=== PATIENT | male | born 1930 | race Caucasian/White ===

== ENCOUNTER 2016-11-17 09:54 | Inpatient (IN) | payer OTHER ==
[~2016-11-17] VITALS: Ht 170.2 cm; Wt 77.1 kg
[~2016-11-17 09:54] MED LIST: ARICEPT 5 MG TAB5 MG PO; COUMADIN 2.5MG2.5 M1 PO; COUMADIN 3 MG TA3 MG PO; DESYREL50 MG PO; HYDROCODONE-AP1 EAC6 PO; PRILOSEC 20 MG20 MG PO; SENOKOT-S1 TA1 PO; SYNTHROID150 MCG PO; ZETIA10 MG PO
[2016-11-17 09:56] VITALS: BP 163/66
[2016-11-17 10:31] LABS: HEMATOCRIT 45.3 % (42.0-52.0); HEMOGLOBIN 15.6 gm/dL (14.0-18.0); MCH 31.6 pg (26.0-34.0); MCHC 34.5 g/dL (28.0-37.0); MCV 91.7 fL (80.0-100.0); PLATELET COUNT 128 thou/uL (150-400); RBC 4.94 mil/uL (4.50-6.00); RDW 13.6 % (10.5-14.5); WBC 8.7 thou/uL (4.0-11.0)
[2016-11-17 10:35] LABS: CREATININE 1.1 mg/dL (0.7-1.3); MANUAL DIFF YES; POTASSIUM 3.9 mmol/L (3.5-5.1)
[2016-11-17 10:35] LABS: URINE BILIRUBIN NEGATIVE (Negative); URINE BLOOD 1+ (Negative); URINE COLOR YELLOW; URINE GLUCOSE-RANDOM* NEGATIVE (Negative); URINE KETONES NEGATIVE (Negative); URINE LEUKOCYTES-REFLEX 2+ (Negative); URINE PROTEIN (DIPSTICK) NEGATIVE (Negative); URINE SPECIFIC GRAVITY 1.015 (1.003-1.035); URINE UROBILINOGEN 0.2 E.U./dl (0.2-1.0)
[2016-11-17 10:44] LABS: APTT 28.8 Seconds (24.5-32.8); INR 1.9; PROTIME 19.4 Seconds (9.3-11.4)
[2016-11-17 10:45] LABS: CASTS None Seen /LPF (None Seen); CRYSTALS None Seen /LPF (None Seen); SQUAMOUS 4-10 Moderate /LPF (0-3); URINE RBC 0-2 Rare /HPF (0-2)
[2016-11-17 11:00] LABS: PLATELET ESTIMATE NORMAL; TOTAL CELL COUNT 100
[2016-11-17 12:39] VITALS: BP 126/60
[2016-11-17] MEDS ORDERED: FLOMAX0.4 MG PO (13:00)
[2016-11-17] MEDS ORDERED: TRAZODONE HCL50 MG PO (13:00)
[2016-11-17 13:01] VITALS: BP 133/65
[2016-11-17] MEDS ORDERED: MELATONIN1 MG PO (13:05)
[2016-11-17 16:00] VITALS: BP 121/51
[2016-11-17 19:38] VITALS: BP 109/54
[2016-11-18 04:42] VITALS: BP 114/42
[2016-11-18 08:00] VITALS: BP 107/48
[2016-11-18 16:00] VITALS: BP 128/56
[2016-11-18 20:40] VITALS: BP 137/62
[2016-11-19 05:25] VITALS: BP 130/69
[2016-11-19 09:08] VITALS: BP 136/71
[2016-11-19] MEDS ORDERED: CEFDINIR300 MG PO (09:47)
[2016-11-19 10:28] VITALS: BP 136/71
== END 2016-11-19 11:40 | disposition home or self-care (01) | DRG 872 ==
LOC: ER 09:54 → EROBS 11:57 → 4S 11:57
PROVIDERS: Emergency Medicine
DX: A41.9 Sepsis, unspecified organism (principal); N39.0 Urinary tract infection, site not specified; I69.354 Hemiplegia and hemiparesis following cerebral infarction affecting left non-dominant side; E89.0 Postprocedural hypothyroidism; B96.20 Unspecified Escherichia coli [E. coli] as the cause of diseases classified elsewhere; Z88.0 Allergy status to penicillin
CPT/HCPCS: 10100

== ENCOUNTER 2017-06-03 12:24 | Inpatient (IN) | payer OTHER ==
[~2017-06-03] VITALS: Ht 172.7 cm; Wt 77.1 kg
--- NOTE | ~2017-06-03 | O ---
[facility] [place] [address] OPERATIVE REPORT Name: SRIDEVI ANN Room #: 416-P [facility] IN M.R.#: [id number] Admission: 06/03/17 Attend Phys: Riley Dixon MD Discharge: Date of : 31 Report #: [id number] THIS REPORT FOR: //name// CC: Riley Dixon DATE OF SERVICE: 06/04/2017 PREOPERATIVE DIAGNOSIS: Fracture, left femoral neck. POSTOPERATIVE DIAGNOSIS: Fracture, left femoral neck. PROCEDURE: Left proximal femoral cemented hemiarthroplasty. SURGEON: Miguel Montaño MD INDICATIONS: This frail 87-year-old gentleman has problems with arthritis and limited range of motion of both lower extremities. His function is also limited by previous stroke leaving him with some generalized weakness. He has been ambulatory with some assistance. He fell injuring the left hip. X-rays confirmed a fracture of the left femoral neck with displacement. Given these findings, we have discussed treatment options and elected to go ahead with surgical reconstruction using a cemented total hip arthroplasty. The patient and his daughter understand well the potential risks of surgery, particularly given his advanced age. DESCRIPTION OF PROCEDURE: The patient was taken to the operating room where he was placed under general anesthesia. Prophylactic intravenous antibiotics were administered. He was positioned in the right lateral decubitus position. The left hip and thigh were meticulously prepped and draped. A slightly curving posterolateral skin incision was made exposing the posterior aspect of the left hip joint. The short external rotators and capsule were taken down and tagged with several #1 Tevdek sutures. The fracture was found to be unstable and the femoral head was removed, it was measured at 52 mm in diameter. The femoral neck was trimmed down to an appropriate level. The Olson and Nephew hip system was utilized. The canal was sequentially reamed and broached and felt to be best suited for a size 14 broach, which would correspond to a size 12 cemented stem. A trial reduction was performed and the hip was best suited for a 52-mm head and a -3 mm neck length. He does have some preexisting flexion contracture at the hip and the knee. This length component resulted in some improvement in his preoperative hip flexion contracture. Alignment, range of motion and stability appeared to be satisfactory. The trial components were removed. A cement restrictor was placed in the canal. Methyl methacrylate cement was mixed and injected into the canal. The Olson and Nephew size 12 cemented stem was selected. This was placed into the canal and positioned in about 15-20 degrees of anteversion. Excess cement was removed [address] [address] OPERATIVE REPORT Name: SRIDEVI ANN Room #: 416-P [facility] IN .R.#: [id number] Admission: 06/03/17 Attend Phys: Riley Dixon MD Discharge: Date of : 31 Report #: [id number] from around its margin. Gentle pressure was held until the cement had hardened. A trial reduction was again performed and again the 52 mm head with a -3 mm neck length seemed to fit most appropriately and resulted in satisfactory alignment, range of motion and stability. The permanent components were then brought on to the field and the permanent 52 mm head size with a -3 mm neck sleeve component was then assembled and inserted on to the Meyer taper, this was impacted into position, the hip was reduced. Alignment, range of motion, stability and leg length were assessed and felt to be satisfactory. The entire wound was copiously irrigated. Good hemostasis was established. The short external rotators and capsule were then repaired back to bone using the #1 Tevdek sutures. A Hemovac was left in the wound exiting through a separate stab incision. The fascia was closed with multiple #1 Vicryl sutures. The subcutaneous tissues were closed with 0 Monocryl. The skin was closed with skin savi. A sterile dressing was applied. The patient was awakened and returned to recovery room in good condition. <ELECTRONICALLY SIGNED> By: Miguel Montaño MD 06/05/17 1612 1111 1212 Miguel Montaño MD /nt
--- NOTE | ~2017-06-03 | HC ---
[facility] [place] [address] CONSULTATION Name: SRIDEVI ANN Room #: 416-P [facility] IN ..#: [id number] Admission: 06/03/17 Attend Phys: Riley Dixon MD Discharge: 06/10/17 Date of : 31 Report #: [id number] THIS REPORT FOR: //name// CC: Riley Dixon HISTORY OF PRESENT ILLNESS: This patient is seen in consultation regarding recent findings of suspected adenocarcinoma of the prostate. He was admitted emergently following a fall and was found to have a fracture of his left femur. This x-rays also showed osseous sclerotic bone lesions. PSA was elevated at ____. Subsequent neurological exam shows his prostate to be enlarged and nodular. 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 He has undergone prior thyroidectomy and cholecystectomy. He had an unknown malignancy removed from his scalp in the past. ALLERGIES: PENICILLIN. MEDICATIONS: As listed on the MFR. FAMILY HISTORY: Noncontributory. SOCIAL HISTORY: Lives with his who was not present. He is a nondrinker and nonsmoker. REVIEW OF SYSTEMS: Positive for urinary retention, frequency and diminished stream. PHYSICAL EXAMINATION: GENERAL: Shows an alert white male. HEENT: He is normocephalic. NECK: Shows previous thyroidectomy. CHEST: Clear. CARDIOVASCULAR: Normal S1 and S2. ABDOMEN: No organomegaly or masses. EXTREMITIES: Show recent surgery on the left. SKIN: Shows normal turgor. NEUROLOGIC: No focal localizing signs at rest. He does have left upper hemiparesis with decreased coordination. HOSPITAL COURSE: His x-rays were as described in addition to apparent adenopathy on CT scanning. 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 PLAN: At this time, he is awaiting transfer to rehabilitation and states that [facility] [address] [place] [address] CONSULTATION Name: SRIDEVI ANN Room #: 416-P [facility] IN [facility]#: [id number] Admission: 06/03/17 Attend Phys: Riley Dixon MD Discharge: 06/10/17 Date of : 31 Report #: [id number] he is not interested in pursuing any further evaluation or treatment. I have suggested he discuss this further with Dr. Dixon who is his longstanding family physician. If he were to elect to pursue treatment, it is likely that he would respond to antiandrogen therapy and blockade and can also strengthen bone with bisphosphonate to hopefully prevent other further fractures and/or bony pain. I have not scheduled followup, but would be happy to see him if he elects to pursue any further treatment or management. Thanks very much for asking us to see him in consultation and allowing me to participate in his care. <ELECTRONICALLY SIGNED> By: Julissa Solorio MD 06/23/17 0916 1535 0229 Julissa Solorio MD /keny
--- NOTE | ~2017-06-03 | HC ---
[facility] [place] [address] CONSULTATION Name: ANNSRIDEVI ORELLANA Room #: 416-P ADM IN M.R.#: [id number] Admission: 06/03/17 Attend Phys: Riley Dixon MD Discharge: Date of : 31 Report #: [id number] THIS REPORT FOR: //name// CC: Riley Dixon DATE OF SERVICE: 06/03/2017 CHIEF COMPLAINT: Left proximal femur fracture. HISTORY OF PRESENT ILLNESS: This frail, but still alert, active and independent 87-year-old gentleman fell today after he came home from a physician visit. He fell hard on the left side, injuring the left hip. He returned to the Emergency Room where x-rays confirm a displaced fracture of the left femoral neck. He denies any other injuries. At the time of my evaluation, he appears alert and oriented and is only moderately uncomfortable. He denies any symptoms involving the head, neck, back or upper extremities. He is resting in bed with moderate discomfort with the left leg slightly shortened and rotated consistent with an unstable proximal femur fracture. He has discomfort with any attempted movement about the left hip. Distal neurologic and vascular status appeared to be normal. X-rays of the pelvis and both hips revealed moderate degenerative change at both hips. The left hip demonstrates a femoral neck fracture with displacement and some shortening. IMPRESSION AND PLAN: Left proximal femur fracture with displacement. I have discussed this with the patient, reviewing treatment options. He seems to understand and wishes to go ahead with surgical repair. I believe a cemented hip hemiarthroplasty is the best approach given his fracture pattern and his age. He is on Coumadin with history of a previous stroke. His Coumadin will be held pending improvement in his clotting studies. We may be able to proceed with surgery tomorrow. <ELECTRONICALLY SIGNED> By: Miguel Montaño MD 06/04/17 0745 1726 2154 Miguel Montaño MD /nt
--- NOTE | ~2017-06-03 | HC ---
[facility] [place] [address] CONSULTATION Name: SRIDEVI ANN Room #: 416-P [facility] IN ..#: [id number] Admission: 06/03/17 Attend Phys: Riley Dixon MD Discharge: 06/10/17 Date of : 31 Report #: [id number] THIS REPORT FOR: //name// CC: Riley Dixon DATE OF SERVICE: 06/08/2017 HISTORY OF PRESENT ILLNESS: The patient is an 87-year-old white male with a prior CVA with residual left hemiparesis back in 1998, who had a fall and sustained a left femoral neck fracture. He was admitted to [facility] and underwent hemiarthroplasty on 06/04/2017. He is allowed weightbearing as tolerated. There is also a noted acetabular lesion on plain films. He has an elevated PSA. He has been seen by Urology and it is thought that he likely has prostate cancer. The recommendation is for him to have outpatient followup for this. Regarding the postoperative period from his hemiarthroplasty, his course was complicated by intermittent atrial fibrillation, for which he is now back in normal sinus rhythm. We are seeing him in rehabilitation medicine consultation. PAST MEDICAL HISTORY: Includes the prior right brain CVA with left hemiparesis as noted above. He has had history of cancer removed from the scalp, thyroidectomy, cholecystectomy, and urinary retention. ALLERGIES: PENICILLIN. FAMILY HISTORY: Noncontributory. SOCIAL HISTORY: Lives in a house with his , 8 steps in, premorbid cane versus walker ambulator with his prior stroke. HABITS: No history of tobacco or alcohol abuse. REVIEW OF SYSTEMS: Did not offer any current complaints of chest pain, shortness of breath, or abdominal discomfort. He has had the problems with his bladder with a note of urinary retention and Urology is involved as noted above. He has difficulty getting comfortable and has left hip discomfort as expected. PHYSICAL EXAMINATION: GENERAL: He is an 87-year-old white male, in no obvious distress. VITAL SIGNS: Last recorded temperature 97.7, pulse 83, respirations 14, and blood pressure 146/60. NEUROLOGIC: He is alert and oriented. Nasal prong O2 is in place. Facies are symmetric. He does have some depressed left nasolabial fold. Functional range of motion of the right upper extremity without focal weakness. Left upper extremity reveals hemiparesis, decreased coordination. Strength is probably grade 3 to 3+ with some definite clumsiness. There is some increased tone. [facility] [address] [place] [address] CONSULTATION Name: SRIDEVI ANN Room #: 416-P [facility] IN [facility]#: [id number] Admission: 06/03/17 Attend Phys: Riley Dixon MD Discharge: 06/10/17 Date of : 31 Report #: [id number] EXTREMITIES: Functional range of motion of the right lower extremity, strength is probably a grade 4/5. Left hip is dressed. He has discomfort with attempting to move. Left lower extremity, there is no focal calf swelling. Functionally, he has been mod assist with attempted sit to stand. ASSESSMENT: An 87-year-old white male with the following problems: 1. Left femoral neck fracture, status post hemiarthroplasty on 06/04/2017, weightbearing as tolerated. 2. Intermittent atrial fibrillation with conversion to normal sinus rhythm. 3. 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 4. Premorbid cane versus walker ambulator. 5. Likely prostate cancer with recommendations for outpatient evaluation. He has an acetabular lesion on plain film and an elevated PSA. PLAN: The patient is working in therapies to maximize his functional abilities. Insurance is being checked into regarding options for his further rehabilitation therapies. Note that skilled level plans are underway. <ELECTRONICALLY SIGNED> By: Miguel Mercer MD 06/12/17 1306 1648 2313 Miguel Mercer MD /[facility]
--- NOTE | ~2017-06-03 | EKG ---
[place] [address] [facility] [place] [address] ELECTROCARDIOGRAM REPORT Name: SRIDEVI ANN Room #: 416-P ADM IN M.R.#: [id number] Admission: 06/03/17 Attend Phys: Riely Dixon MD Discharge: Date of : 31 Report #: [id number] THIS REPORT FOR: //name// [facility] ED Test Date: 2017-06-03 Test Time: 15:11:15 Pat Name: SRIDEVI BENZANN Department: Room: [facility] Gender: M Media Specialist: MZOOK : 1930 Requested By: Starla Crandall Order Number: [id number] MD: Philippe Alvarez Measurements Intervals Dawson Rate: 69 P: 87 [place]: 204 QRS: 17 QRSD: 103 T: -7 QT: 457 QTc: 490 Interpretive Statements Sinus rhythm Borderline T abnormalities, diffuse leads Borderline prolonged QT interval Compared to ECG 05/09/2014 09:23:07 Ventricular premature complex(es) no longer present T-wave abnormality still present Electronically Signed On 06-03-2017 23:06:55 [employer] by Philippe Alvarez [email or web address] <ELECTRONICALLY SIGNED> By: Philippe Alvarez MD 06/03/17 2306 1511 1511 Philippe Alvarez MD /EPI
[~2017-06-03 12:24] MED LIST changes: +CEFDINIR300 MG PO; +FLOMAX0.4 MG PO; +MELATONIN1 MG PO; +TRAZODONE HCL50 MG PO
[2017-06-03 12:25] VITALS: BP 154/53
[2017-06-03 13:08] LABS: PROTIME 19.9 Seconds (9.3-11.4)
[2017-06-03] MEDS ORDERED: LIDODERM1 EACH TRANSDERM (13:44)
[2017-06-03 17:30] VITALS: BP 154/53
[2017-06-03 18:37] VITALS: BP 154/53
[2017-06-03 18:45] VITALS: BP 160/88
[2017-06-03 19:15] LABS: HEMATOCRIT 45.1 % (42.0-52.0); HEMOGLOBIN 15.4 gm/dL (14.0-18.0); MCH 31.1 pg (26.0-34.0); MCHC 34.1 g/dL (28.0-37.0); MCV 91.4 fL (80.0-100.0); RBC 4.94 mil/uL (4.50-6.00); RDW 13.9 % (10.5-14.5); WBC 6.8 thou/uL (4.0-11.0)
[2017-06-03 19:22] LABS: ALBUMIN 3.7 g/dL (3.4-5.0); CALCIUM 8.9 mg/dL (8.5-10.1); CREATININE 0.9 mg/dL (0.7-1.3); POTASSIUM 3.8 mmol/L (3.5-5.1); TOTAL BILIRUBIN 0.5 mg/dL (<0.1-1.0); TOTAL PROTEIN 6.6 g/dL (6.4-8.2)
[2017-06-03 19:28] VITALS: BP 150/64
[2017-06-04] VITALS (8 sets, daily range): BP systolic 132–161; BP diastolic 51–83
[2017-06-04 06:18] LABS: CALCIUM 8.2 mg/dL (8.5-10.1); CREATININE 0.8 mg/dL (0.7-1.3); POTASSIUM 3.9 mmol/L (3.5-5.1)
[2017-06-04 06:27] LABS: HEMATOCRIT 42.5 % (42.0-52.0); HEMOGLOBIN 14.4 gm/dL (14.0-18.0); MCH 30.8 pg (26.0-34.0); MCV 90.6 fL (80.0-100.0); RBC 4.69 mil/uL (4.50-6.00); RDW 13.9 % (10.5-14.5); WBC 8.5 thou/uL (4.0-11.0)
[2017-06-04 08:01] LABS: INR 1.3; PROTIME 13.5 Seconds (9.3-11.4)
[2017-06-05 04:00] VITALS: BP 170/63
[2017-06-05 04:25] LABS: HEMATOCRIT 40.4 % (42.0-52.0); HEMOGLOBIN 13.5 gm/dL (14.0-18.0); MCH 30.4 pg (26.0-34.0); MCHC 33.6 g/dL (28.0-37.0); MCV 90.7 fL (80.0-100.0); RBC 4.45 mil/uL (4.50-6.00); RDW 13.6 % (10.5-14.5); WBC 11.6 thou/uL (4.0-11.0)
[2017-06-05 07:25] VITALS: BP 147/64
[2017-06-05 16:11] VITALS: BP 131/63
[2017-06-05 20:38] VITALS: BP 142/74
[2017-06-06 04:35] VITALS: BP 162/56
[2017-06-06 04:43] LABS: HEMOGLOBIN 13.3 gm/dL (14.0-18.0); MCH 31.1 pg (26.0-34.0); MCHC 34.2 g/dL (28.0-37.0); MCV 90.9 fL (80.0-100.0); RBC 4.3 mil/uL (4.50-6.00); RDW 13.8 % (10.5-14.5); WBC 8.8 thou/uL (4.0-11.0)
[2017-06-06 07:50] VITALS: BP 148/47
[2017-06-06 16:25] VITALS: BP 140/51
[2017-06-06 20:57] VITALS: BP 108/41
[2017-06-07 05:25] VITALS: BP 140/49
[2017-06-07 11:04] VITALS: BP 143/65
[2017-06-07 16:22] VITALS: BP 143/62
[2017-06-07 19:15] VITALS: BP 113/58
[2017-06-08 03:55] VITALS: BP 134/59
[2017-06-08 09:25] VITALS: BP 146/60
[2017-06-08 16:00] VITALS: BP 115/746
[2017-06-08 21:07] VITALS: BP 141/70
[2017-06-09 04:09] VITALS: BP 136/61
[2017-06-09 08:00] VITALS: BP 146/71
[2017-06-09 16:07] VITALS: BP 145/53
[2017-06-09 20:00] VITALS: BP 137/52
[2017-06-10 02:00] VITALS: BP 136/41
[2017-06-10 07:23] VITALS: BP 131/62
[2017-06-29] MEDS ORDERED: PROBIOTIC1 EAC1 PO (08:32)
[2017-06-29] MEDS ORDERED: TYLENOL325 MG PO (08:32)
[2017-06-29] MEDS ORDERED: ENOXAPARIN80 MG/0.1 SUBQ (08:33)
[2017-06-29] MEDS ORDERED: CENTRUM SILVER1 EAC2 PO (08:33)
[2017-06-29] MEDS ORDERED: NYAMYC15 GM TOP (08:34)
[2017-06-29] MEDS ORDERED: VITAMIN C WIT1000 MG PO (08:34)
[2017-06-29] MEDS ORDERED: TRAMADOL 50 MG50 MG PO (08:34)
[2017-06-29] MEDS ORDERED: ZOFRAN 4 MG ORAL4 MG PO (08:35)
[2018-02-12] MEDS ORDERED: PREDNISONE 5 MG5 M1 PO (10:25)
[2018-02-12] MEDS ORDERED: TRAMADOL 50 MG50 MG PO (10:26)
[2018-02-12] MEDS ORDERED: ZYTIGA500 MG PO (10:27)
[2018-02-12] MEDS ORDERED: LUPRON DEPOT45 MG IM (10:29)
[2018-02-12] MEDS ORDERED: XGEVA120 MG/1.7 SUBQ (10:30)
[2018-02-12] MEDS ORDERED: VITAMIN D5000 UNIT PO (10:32)
[2018-02-12] MEDS ORDERED: CEFDINIR300 MG PO (10:32)
== END 2017-06-10 13:08 | DRG 470 ==
LOC: ER 12:24 → EROBS 14:18 → 4N 14:18
PROVIDERS: Emergency Medicine; Family Medicine; Orthopaedic Surgery
PROC: 0SRS0J9 Replacement of Left Hip Joint, Femoral Surface with Synthetic Substitute, Cemented, Open Approach (ICD-10-PCS; principal; 2017-06-04)
DX: S72.012A Unspecified intracapsular fracture of left femur, initial encounter for closed fracture (principal); I69.954 Hemiplegia and hemiparesis following unspecified cerebrovascular disease affecting left non-dominant side; E89.0 Postprocedural hypothyroidism; I48.91 Unspecified atrial fibrillation; C61 Malignant neoplasm of prostate; N40.2 Nodular prostate without lower urinary tract symptoms; I10 Essential (primary) hypertension; W18.39XA Other fall on same level, initial encounter; Y93.89 Activity, other specified; Y92.89 Other specified places as the place of occurrence of the external cause; Y99.8 Other external cause status; Z90.49 Acquired absence of other specified parts of digestive tract; Z79.01 Long term (current) use of anticoagulants; Z88.0 Allergy status to penicillin; Z79.899 Other long term (current) drug therapy
CPT/HCPCS: 10790; 50010; 50101; 50382; 50414; 51057; 51130; 51225; 51412; 53000; 55381; 56521; 56525; 56527; 62110; 62900; 70005

== ENCOUNTER → 2017-06-29 | Outpatient (CLI) | payer OTHER ==
[~2017-06-29] VITALS: Ht 172.7 cm; Wt 78.5 kg
[~2017-06-29] MED LIST changes: +CENTRUM SILVER1 EAC2 PO; +ENOXAPARIN80 MG/0.1 SUBQ; +LIDODERM1 EACH TRANSDERM; +LUPRON DEPOT45 MG IM; +NYAMYC15 GM TOP; +PREDNISONE 5 MG5 M1 PO; +PROBIOTIC1 EAC1 PO; +TRAMADOL 50 MG50 MG PO; +TYLENOL325 MG PO; +VITAMIN C WIT1000 MG PO; +VITAMIN D5000 UNIT PO; +XGEVA120 MG/1.7 SUBQ; +ZOFRAN 4 MG ORAL4 MG PO; +ZYTIGA500 MG PO
--- NOTE | ~2017-06-29 | S ---
[facility] [place] [address] SURGICAL PATH RPT PROCEDURE Name: PIPE CORONEL Room #: REG EFREN Mckeon.#: [id number] Admission: 06/29/17 Date of : 31 Discharge: Report #: [id number] Path Case #: [id number] PATHOLOGY REPORT COLLECTION DATE: 06/29/2017 RECEIVED DATE: 06/29/2017 SUBMITTING PHYS: Dr. Rommel Muir OTHER PHYS: Dr. 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 COMMENT: Examination shows a gland forming malignancy with crush artifact present within the biopsy tissue. Immunohistochemical stains are performed in lieu of the provided clinical history: (Block A1) AE1/AE3 - membranous reactivity present Synaptophysin - nonreactive TTF-1 - nonreactive CDX2 - nonreactive PSA - reactive PSAP - reactive Based on the morphology as well as the immunohistochemical stains, the tumor likely represents a metastatic carcinoma of prostatic origin. Co-review: Dr. Tequila Farris Findings are telephoned to Dr. Dixon at approximately 12:30 pm on 07/01/2017. (IUV:pit; 07/01/2017) PATHOLOGIST: Lotus Chandler M.D. REPORT ELECTRONICALLY SIGNED BY: Lotus Chandler M.D. DATE/TIME: 07/01/2017 14:53 * * * * * * * * * * * * GROSS PATHOLOGY: The specimen is received in formalin, labeled "Pipe Coronel and L1 biopsy", is a garcia-white cylindrical bone 0.5 x 0.1 x 0.1 cm admixed with red brown clotted. Entirely submitted in A1 after [facility] [address] [place] [address] SURGICAL PATH RPT PROCEDURE Name: PIPE CORONEL GENE Room #: REG CLI ..#: [id number] Admission: 06/29/17 Date of : 31 Discharge: Report #: [id number] Path Case #: [id number] decalcification. (SWS; 06/29/2017) CLINICAL HISTORY: Elevated PSA-multiple bony lesions, metastases INITIAL CPT CODE(S): A; 99722, 85863, 70263, 27452, 68158, 89140, 67579, 38656 Professional services performed by [facility] at [facility] [address], [place] [address] Technical services performed by [facility] at [address] [place] [address], [facility] [address], [place] [address]. [facility] [address] [place] [address] PHONE: [phone] DIRECTOR: Cy Cruz M.D. * * * END OF REPORT * * *
[2017-06-29 08:15] VITALS: BP 122/52
[2017-06-29 08:30] LABS: HEMATOCRIT 40.1 % (42.0-52.0); HEMOGLOBIN 13.5 gm/dL (14.0-18.0); MCH 30.4 pg (26.0-34.0); MCHC 33.7 g/dL (28.0-37.0); MCV 90.2 fL (80.0-100.0); RBC 4.45 mil/uL (4.50-6.00); RDW 14.6 % (10.5-14.5)
[2017-06-29 08:40] LABS: CALCIUM 8.7 mg/dL (8.5-10.1); CREATININE 0.9 mg/dL (0.7-1.3); POTASSIUM 3.8 mmol/L (3.5-5.1)
[2017-06-29 08:41] LABS: PROTIME 10.3 Seconds (9.3-11.4)
== END ==
LOC: CAT 06-22 08:30
PROVIDERS: Radiology Vascular & Interventional Radiology
DX: C79.51 Secondary malignant neoplasm of bone (principal); E78.5 Hyperlipidemia, unspecified; Z98.890 Other specified postprocedural states; Z85.828 Personal history of other malignant neoplasm of skin; Z90.49 Acquired absence of other specified parts of digestive tract; Z85.46 Personal history of malignant neoplasm of prostate; Z86.73 Personal history of transient ischemic attack (TIA), and cerebral infarction without residual deficits; Z79.01 Long term (current) use of anticoagulants; Z88.0 Allergy status to penicillin

== ENCOUNTER → 2017-10-30 | Outpatient (CLI) | payer OTHER ==
[~2017-10-30] MED LIST changes: -LUPRON DEPOT45 MG IM; -PREDNISONE 5 MG5 M1 PO; -VITAMIN D5000 UNIT PO; -XGEVA120 MG/1.7 SUBQ; -ZYTIGA500 MG PO
== END ==
LOC: RAD 11:45
DX: C79.51 Secondary malignant neoplasm of bone (principal); C79.49 Secondary malignant neoplasm of other parts of nervous system; C79.89 Secondary malignant neoplasm of other specified sites; M48.05 Spinal stenosis, thoracolumbar region; Z96.642 Presence of left artificial hip joint; Z85.46 Personal history of malignant neoplasm of prostate

== ENCOUNTER → 2018-02-26 | Outpatient (CLI) | payer OTHER ==
[~2018-02-26] MED LIST changes: +LUPRON DEPOT45 MG IM; +PREDNISONE 5 MG5 M1 PO; +VITAMIN D5000 UNIT PO; +XGEVA120 MG/1.7 SUBQ; +ZYTIGA500 MG PO
[2018-02-26 10:32] VITALS: BP 130/60
== END ==
LOC: SEN 09:17
DX: L82.1 Other seborrheic keratosis (principal); K59.00 Constipation, unspecified; M25.569 Pain in unspecified knee; R60.0 Localized edema; Z79.899 Other long term (current) drug therapy; Z85.46 Personal history of malignant neoplasm of prostate

== ENCOUNTER → 2018-05-28 | Outpatient (CLI) | payer OTHER ==
[2018-05-28 09:06] LABS: CREATININE 0.9 mg/dL (0.7-1.3)
== END ==
LOC: CAT 08:11
PROVIDERS: Internal Medicine Hematology & Oncology
DX: I77.811 Abdominal aortic ectasia (principal); K57.30 Diverticulosis of large intestine without perforation or abscess without bleeding; C61 Malignant neoplasm of prostate; C79.51 Secondary malignant neoplasm of bone; J84.10 Pulmonary fibrosis, unspecified; I70.0 Atherosclerosis of aorta; J98.11 Atelectasis; M47.816 Spondylosis without myelopathy or radiculopathy, lumbar region

== ENCOUNTER → 2018-06-15 | Outpatient (CLI) | payer OTHER ==
[~2018-06-15] VITALS: Ht 375.9 cm; Wt 74.8 kg
[~2018-06-15] MED LIST changes: +CAL-MAG COMPLE1 EACH PO; +FLECTOR PATCH1 EA TRANSDERM; +NORCO 5-325 TA1 EACH PO
[2018-06-15 09:27] VITALS: BP 134/75
--- NOTE | 2018-06-15 09:50 | NUR ---
Pain Clinic Assessment: 1. History of Osteoarthritis: Right Lower Extremity Left Lower Extremity History of Rheumatoid Arthritis: Not Applicable 2. Height: 5 ft. 88 in. 375.9 cm. Weight: 165.0 lb. oz. 74.844 kg. Patient's BMI: 5.3 3. Vital Signs: BP: 134/75 Pulse: 65 Resp: 16 Temp: 02 Sat: 97 ECG Mon: 4. Pain Intensity: 9-10 5. Fall Risk: Dizziness: N Needs help standing or walking: Y Fallen in the last 3 months: N Fall risk comments: 6. Patient on Blood Thinner: Warfarin (Coumadin) 7. History of Hypertension: Y 8. Opioid Therapy greater than 6 weeks: N Opiate Contract Signed: 9. Risk Assessment Tool Provided: 10. Functional Assessment Tool: 11. Recreational Drug Use: Never Drug Type: Tobacco Use: Never Smoker Tobacco Type: Amount or Packs/day: How Many Years: Alcohol Use: No Frequency: Quant:
--- NOTE | 2018-06-18 06:50 | HPC ---
[facility] [address] [place] [address] PAIN MANAGEMENT CONSULTATION Name: SRIDEVI ANN Room #: REG EFREN Moriah#: [id number] Admission: 06/15/18 ������������������ Attend Phys: Colin Murillo DO Discharge: ������������������ Date of : 31 Report #: [id number] THIS REPORT FOR: //name// CC: Salima Murillo DATE OF SERVICE: 06/15/2018 REFERRING PHYSICIAN: Nurse practitioner, Salima Rocha NP at [facility]. CHIEF COMPLAINT: Right knee pain. HISTORY OF PRESENT ILLNESS: As you know, the patient is an 88-year-old male who complains of chronic right knee pain. The patient has undergone partial knee arthroplasty of the right knee for osteoarthritic changes noted on the lateral portion of his knee. Apparently, the surgery did not provide much in the way of improvement. He is yet to follow up with his orthopedic surgeon in regards to conversion to a total knee arthroplasty. He continues to experience pain for which he places pain at a 9/10. He sought evaluation through his primary care team who referred the patient to our clinic to trial intra-articular knee injections. He is resistant to initiate medication therapy given his age and his instability with ambulation. He indicates he underwent a partial knee arthroplasty in [address] Castro. He has had a complete total left knee arthroplasty. He has undergone injections in the knee about 3 different times with variable levels of pain improvement. He completed formalized physical therapy in April but does not participate in any continued activity at home. Apparently, he was receiving this physical therapy via home therapy and has completely discontinued any activities since they have discontinued the formalized portion. He recently sought evaluation through his PCP who referred the patient to our clinic to trial injection therapy. The patient indicates pain is continuous, describes the pain as aching, sharp, stabbing and crushing. He places current pain score at 9-10/10, daily average at 9-10/10, worst the pain has been is 10/10. The patient states that weightbearing, standing and walking exacerbates symptoms and rest, relaxation tends to improve pain. He has been referred to our clinic to discuss injection therapy and suggestions for medication management to be provided through his primary care team. PAST MEDICAL HISTORY: 1. Osteoarthritis. 2. Hypothyroidism. 3. GERD. 4. History of stroke, [place] [address] PAIN MANAGEMENT CONSULTATION Name: SRIDEVI ANN Room #: REG CLLisa Major#: [id number] Admission: 06/15/18 ������������������ Attend Phys: Colin Murillo DO Discharge: ������������������ Date of : 31 Report #: [id number] 5. Metastatic prostate cancer. 6. Basal cell carcinoma. 7. Dementia. 8. Dyslipidemia. PAST SURGICAL HISTORY: 1. Cholecystectomy. 2. Thyroidectomy. 3. Right knee partial arthroplasty. 4. Left knee total arthroplasty. 5. Left hip arthroplasty. SOCIAL HISTORY: The patient denies tobacco, alcohol, IV or illicit drug use. He is retired, retired years ago. He is accompanied by his daughter who is present in room, providing the majority of the patient's history. He is not receiving workmen's compensation nor is he trying to obtain disability benefits. He is not in litigation in regards to pain. REVIEW OF SYSTEMS: Positive for decrease in appetite, fatigue and weakness, wearing corrective eyewear, hearing loss with tinnitus, changes in bowel movements, constipation interspersed with diarrhea, frequent urination, nocturia, incontinence, dribbling to urine, history of stroke requiring chronic anticoagulation. Memory loss with confusion, thyroid disease requiring medication management, slow to heal after cuts, osteoarthritic pain, right knee pain. All other review of systems negative per 12-point review of systems other than those listed in history of present illness. PAIN SCORE: Pain impact score 49/70 indicating moderate interference of daily activities secondary to pain. IMAGING DATA: There is no imaging available. PQRS: The patient has known osteoarthritic changes of the right hip, right knee, bilateral shoulders and no rheumatoid arthritis. He is placing current pain intensity at 9-10/10. He is a fall risk but has not had a fall in the last 3 months. He is on blood thinner in the form of warfarin. He is treated for hypertension. He is not on chronic opioids. He has a low opioid assessment risk. Pain impact score indicated is 49/70. ALLERGIES: PENICILLIN. CURRENT MEDICATIONS: Aricept 5 mg once a day, Flomax 0.4 mg once a day, hydrocodone 5/325 one tab every 8 hours p.r.n. for pain, Lidoderm patch apply topically up to twice a day, Synthroid 150 mcg 1 tab per day, tramadol 50 mg p.o. q. 6 hours p.r.n. mild pain, warfarin 3 mg per day, Zetia 10 mg per day, Lupron 80 mg every 3 months, Xgeva 0.7 mL syringe monthly and melatonin [address] [address] PAIN MANAGEMENT CONSULTATION Name: SRIDEVI ANN Room #: REG EFREN Major#: [id number] Admission: 06/15/18 ������������������ Attend Phys: Colin Murillo DO Discharge: ������������������ Date of : 31 Report #: [id number] p.o. at bedtime. PHYSICAL EXAMINATION: VITAL SIGNS: Blood pressure 134/75, pulse 65 and respiratory rate 16 and unlabored. The patient is 97% on room air. Height 5 feet 8 inches tall, weight 165 pounds and BMI calculated 25. GENERAL: Well-developed, well-nourished and well-hydrated 88-year-old male who appears his stated age. He is in no acute distress, awake, alert and oriented x 3. Current pain score is 9/10. HEENT: Normocephalic and atraumatic. Pupils equal, round and reactive to light. Extraocular muscles are intact. Sclerae nonicteric, without injection. NEUROLOGICAL: Cranial nerves 2 through 12 grossly intact. Hearing is decreased bilaterally. LUNGS: Clear. No wheeze, rhonchi or rales. CARDIOVASCULAR: Regular. No appreciable gallop and no rub. ABDOMEN: Soft. Normoactive bowel sounds. EXTREMITIES: Show no clubbing. No cyanosis. A 1+ nonpitting lower extremity edema. MUSCULOSKELETAL: The patient has pain to palpation over the medial aspect of the right knee as well as the left aspect of the right knee. There is well-healed surgical scar on the lateral portion of the right knee noted. Active and passive range of motion of right knee intensifies the patient's pain. Standing from seated position is difficult and pain is elicited with weightbearing over the right knee. There does not appear to be any laxity with anterior and posterior drawer testing. ASSESSMENT: 1. Right knee osteoarthritis. 2. Chronic right knee pain. 3. Dementia. 4. Chronic anticoagulation. 5. Chronic intractable pain. PLAN: 1. Based on today's physical exam and history, the patient provided the description the patient uses in regards to pain as well as location of symptoms, likely source of the patient's pain is osteoarthritic changes of the right knee. The patient has undergone a partial lateral knee arthroplasty on the right side, which has left the medial aspect of the knee unprotected. The symptoms the patient experiencing appears to be arthritic in nature. We discussed the options for treatment for right knee discomfort secondary to osteoarthritis today. The following was discussed with the patient and his daughter in regards to treatment options available to address his ongoing symptoms. We discussed physical therapy, stretching exercises and strengthening of the right lower extremity. I do understand the patient underwent this treatment up [facility] [address] [place] [address] PAIN MANAGEMENT CONSULTATION Name: SRIDEVI ANN Room #: REG CLLisa Mckeon.#: [id number] Admission: 06/15/18 ������������������ Attend Phys: Colin Murillo DO Discharge: ������������������ Date of : 31 Report #: [id number] to April, but he has subsequently discontinued this activity. He should have been advised during the formalized program that physical therapy being provided would be a lifestyle alteration and he would have to continue the activity. He has subsequently discontinued and the pain has intensified. He could reinitiate this if he wishes to do so. We discussed medication management but given his current anticoagulation, he can be initiated on the medication most appropriate for the treatment, which would be nonsteroidal anti-inflammatories. Certainly topical agents could be provided with low absorption rate such as Voltaren gel either 1% or 3% solution, patches such as diclofenac patch can be applied to the area, though adherence may be difficult on a mobile knee. We discussed the possibility of adding strictly just pain medications in the form of tramadol and hydrocodone. The patient is resistant to initiate this medication with concerns of his underlying dementia and instability with ambulation. We discussed intraarticular knee injections as the most effective treatment option at present. Final treatment would be to revise the partial arthroplasty to a total arthroplasty, which would resolve the patient's symptoms entirely. After reviewing the risks and benefits of all proposed treatment options, the patient chose to undergo a right intraarticular knee injection. The patient was advised risks and benefits of a right knee injection. These risks include but are not necessarily limited to bleeding, bruising, infection, worsening pain, no relief of pain, also risk of temporary or permanent muscle weakness, temporary or permanent nerve damage, possible joint destruction. The patient states understood and wished to proceed. 2. We started the patient on diclofenac gel 3% solution. I have given him one tube to trial with 2 refills. He will apply this up to 3 times a day as needed for pain control. This has very low absorption rate equaling an approximately 3 mg of diclofenac absorption today based on typical absorption of a topical gels, which shows approximately 10% absorption of the medication and given 30 mg total application. We should see about 3 total mg. He will watch for any bleeding issues, contact his PCP if concerns are noted. 3. We will see the patient back in followup visit in approximately 1 month. At that time, we will review the efficacy of the intraarticular knee injection and determine our next treatment option. PROCEDURE NOTE DESCRIPTION OF PROCEDURE: Right intraarticular knee injection under fluoroscopic guidance. After obtaining written consent, the patient was taken back to fluoroscopy suite, placed in the supine position. Image intensifier was then brought into position over the right knee and imaging was obtained. A sterile marker was then used to yulia the area and the area was then cleansed with chlorhexidine. A 27-gauge 1-1/4 inch needle was then used to anesthetize skin and subcutaneous tissue over the medial aspect of the right knee. [address] [address] PAIN MANAGEMENT CONSULTATION Name: SRIDEVI ANN Room #: REG [facility]#: [id number] Admission: 06/15/18 ������������������ Attend Phys: Colin Murillo DO Discharge: ������������������ Date of : 31 Report #: [id number] A 25-gauge 2-inch needle was then advanced under fluoroscopic guidance into the joint utilizing the medial to lateral approach. Needle was advanced until reaching the knee joints. Needle was then advanced under direct visualization into the joint itself and aspiration noted to be negative for heme. After this aspiration noted to be negative for heme, 0.3 mL of Omnipaque injected demonstrating an excellent right knee arthrogram. After negative aspiration for heme, 3 mL of a solution containing 1 mL 40 mg per mL, 40 mg total triamcinolone, 2 mL bupivacaine 0.5% injected slowly. Needle retracted [facility], flushed with 1 mL of 1% lidocaine and then removed. Sterile bandage placed over injection site. No new motor deficits present in the lower extremity following procedure. The patient tolerated the procedure well, carefully escorted to recovery room in stable condition. VAS before procedure rated at anywhere from 9-10/10. Pain rated at 0/10 upon discharge. After meeting a discharge criteria, the patient discharged home. ��������������������������������������������� <ELECTRONICALLY SIGNED> ���������������������������������������� By: Colin Murillo DO ��������������������������������������������� 06/18/18 0650 [id number] [id number] Colin Murillo, DO /nt
== END | disposition home or self-care (01) ==
LOC: SEN 06-08 15:49 → PAIN 06:48
DX: M25.561 Pain in right knee (principal); G89.29 Other chronic pain; I10 Essential (primary) hypertension; E78.5 Hyperlipidemia, unspecified; E03.9 Hypothyroidism, unspecified; M19.90 Unspecified osteoarthritis, unspecified site; K21.9 Gastro-esophageal reflux disease without esophagitis; F03.90 Unspecified dementia, unspecified severity, without behavioral disturbance, psychotic disturbance, mood disturbance, and anxiety; Z85.46 Personal history of malignant neoplasm of prostate; Z86.73 Personal history of transient ischemic attack (TIA), and cerebral infarction without residual deficits; Z90.49 Acquired absence of other specified parts of digestive tract; Z98.890 Other specified postprocedural states; Z85.828 Personal history of other malignant neoplasm of skin; Z96.653 Presence of artificial knee joint, bilateral; Z96.642 Presence of left artificial hip joint; Z88.0 Allergy status to penicillin; Z79.899 Other long term (current) drug therapy; Z79.01 Long term (current) use of anticoagulants

== ENCOUNTER → 2018-06-29 | Outpatient (CLI) | payer OTHER ==
[~2018-06-29] VITALS: Ht 172.7 cm; Wt 74.8 kg
[2018-06-29 10:04] VITALS: BP 131/72
--- NOTE | 2018-06-29 10:20 | NUR ---
Pain Clinic Assessment: 1. History of Osteoarthritis: Right Lower Extremity Left Lower Extremity History of Rheumatoid Arthritis: Not Applicable 2. Height: 5 ft. 8 in. 172.7 cm. Weight: 165.0 lb. oz. 74.844 kg. Patient's BMI: 25.1 3. Vital Signs: BP: 131/72 Pulse: 80 Resp: 16 Temp: 02 Sat: 99 ECG Mon: 4. Pain Intensity: 4 5. Fall Risk: Dizziness: N Needs help standing or walking: Y Fallen in the last 3 months: N Fall risk comments: 6. Patient on Blood Thinner: Warfarin (Coumadin) 7. History of Hypertension: Y 8. Opioid Therapy greater than 6 weeks: N Opiate Contract Signed: 9. Risk Assessment Tool Provided: 0-LOW 10. Functional Assessment Tool: 59/70 11. Recreational Drug Use: Never Drug Type: Tobacco Use: Never Smoker Tobacco Type: Amount or Packs/day: How Many Years: Alcohol Use: No Frequency: Quant:
--- NOTE | 2018-07-06 08:27 | HPC ---
[facility] [address] [place] [address] PAIN MANAGEMENT CONSULTATION Name: SRIDEVI ANN Room #: REG CLLisa M.R.#: [id number] Admission: 06/29/18 Attend Phys: Colin Murillo DO Discharge: Date of : 31 Report #: [id number] THIS REPORT FOR: //name// CC: Salima Murillo DATE OF SERVICE: 06/29/2018 REFERRING PHYSICIAN: Salima Rocha NP. CHIEF COMPLAINT: Left knee pain. HISTORY OF PRESENT ILLNESS: As you know, the patient is an 88-year-old male who underwent a right intraarticular knee injection at last visit with reported 50% improvement in overall pain. Unfortunately, his pain continues but is now located more in the left knee. As you are aware, the patient has bilateral severe osteoarthritic changes of the knees, but the patient is not a candidate to undergo total knee arthroplasty. We are attempting to obtain and maintain analgesic benefit with injections. He returns today in followup visit to undergo left intraarticular knee injection under fluoroscopic guidance to address ongoing knee discomfort. He denies new injury, new trauma or any changes in medical history since our last visit. ALLERGIES: PENICILLIN. CURRENT MEDICATIONS: Aricept, Flomax, hydrocodone, Lidoderm, Synthroid, tramadol, warfarin, Zetia, Lupron, Xgeva and melatonin. SOCIAL HISTORY: The patient denies tobacco, alcohol or IV or illicit drug use. He is retired, retired years ago, accompanied by his daughter who is present in room today. IMAGING DATA: No new imaging available. PQRS: The patient has known arthritic changes of the right hip, bilateral knees, bilateral shoulder. He has no rheumatoid arthritis. He is placing current pain score at 4/10. He is a fall risk but has not had fallen in the last 3 months. He is on blood thinners. He is treated for hypertension. He has not been on opioids for an extended period time, has low opioid addiction potential. He is placing current pain score functional impact at 59-70, severe interference of daily activities secondary to pain. PHYSICAL EXAMINATION: VITAL SIGNS: Blood pressure 131/72, pulse is 80, respiratory rate 16 and unlabored and the patient 99% on room air. Height 5 feet 8 inches tall, weight [facility] [address] [place] [address] PAIN MANAGEMENT CONSULTATION Name: SRIDEVI ANN Room #: REG CL M.R.#: [id number] Admission: 06/29/18 Attend Phys: Colin Murillo DO Discharge: Date of : 31 Report #: [id number] 165 pounds and BMI calculated 25.1. GENERAL: Well-developed, well-nourished, well-hydrated 88-year-old male, appears his stated age, placing current pain score 4/10. HEENT: Normocephalic and atraumatic. Pupils equal, round and reactive to light. Speech fluent for the patient. EXTREMITIES: Show no clubbing, no cyanosis and no edema. MUSCULOSKELETAL: There is palpatory tenderness over the bilateral knees, left greater than right today. Standing from seated position is difficult. Pain is elicited with weightbearing. Active and passive range of motion of the left knee and right knee is met with increasing pain. ASSESSMENT: 1. Left knee osteoarthritis. 2. Right knee osteoarthritis. 3. Bilateral knee pain. 4. Dementia. 5. Chronic anticoagulation. 6. Chronic intractable pain. PLAN: 1. The patient returns today in followup visit reporting up to 50% improvement in overall pain involving the right knee, status post intra-articular knee injection performed 06/15/2018. He returns today in followup visit to address his left knee for which he is placing pain score 4/10. The patient has been advised the risks and benefits of a left knee intraarticular injection. He states he understands and wishes to proceed. 2. No medication changes made at today's visit. I do give the patient samples of Flector patch to apply to the knees bilaterally. I gave him samples of the medication if he finds this effective, he is to contact the clinic and we will provide a full prescription. Flector will provide good local analgesic benefit. If this is effective, he will contact our clinic. 3. We will see the patient back in followup visit on an as needed basis for bilateral intraarticular knee injections and to discuss possibility of making adjustments in medications that can be handled through his PCP. PROCEDURE NOTE DESCRIPTION OF PROCEDURE: Left intraarticular knee injection under fluoroscopic guidance. After obtaining written consent, The patient was then taken back to fluoroscopy suite, placed in supine position. Image intensifier was then brought into position over the left knee and imaging was obtained. A marker was used to yulia the area of the injection, the area was then cleansed with chlorhexidine in a sterile fashion. A 27-gauge 1-1/4 inch needle was then used to anesthetize skin and subcutaneous tissue over the medial aspect of the left knee. [facility] [address] [place] [address] PAIN MANAGEMENT CONSULTATION Name: SRIDEVI ANN Room #: REG CL Linda#: [id number] Admission: 06/29/18 Attend Phys: Colin Murillo DO Discharge: Date of : 31 Report #: [id number] A 25-gauge 2-inch needle was then advanced under fluoroscopic guidance into the left knee joint utilizing a medial to lateral approach. Needle was advanced until reaching the knee joint. Needle was advanced under direct visualization of the fluoroscope. Aspiration was noted to be negative for heme. After negative aspiration for heme, 0.5 mL of Omnipaque injected demonstrating an excellent left knee arthrogram. After negative aspiration for heme, 3 mL of a solution containing 1 mL 40 mg per mL, 40 mg total triamcinolone and 2 mL bupivacaine 0.5% injected slowly. Needle retracted long-term, flushed with 1 mL of bupivacaine 0.5% then removed. Sterile bandage placed over injection site. No new motor deficits present in the left lower extremity after procedure. The patient tolerated procedure well, carefully escorted to recovery room in stable condition. No apparent complications. After meeting discharge criteria, the patient discharged home. <ELECTRONICALLY SIGNED> By: Colin Murillo DO 07/06/18 0827 0725 0745 Colin Murillo DO /nt
== END | disposition home or self-care (01) ==
LOC: PAIN 06:50
DX: M17.0 Bilateral primary osteoarthritis of knee (principal); G89.29 Other chronic pain; M25.561 Pain in right knee; M25.562 Pain in left knee; I10 Essential (primary) hypertension; M19.90 Unspecified osteoarthritis, unspecified site; F03.90 Unspecified dementia, unspecified severity, without behavioral disturbance, psychotic disturbance, mood disturbance, and anxiety; Z88.0 Allergy status to penicillin; Z79.01 Long term (current) use of anticoagulants; Z79.899 Other long term (current) drug therapy; Z98.890 Other specified postprocedural states

== ENCOUNTER → 2018-08-24 | Outpatient (CLI) | payer OTHER ==
[~2018-08-24] VITALS: Ht 170.2 cm; Wt 74.8 kg
[2018-08-24 12:55] VITALS: BP 135/70
--- NOTE | 2018-08-24 13:02 | NUR ---
Pain Clinic Assessment: 1. History of Osteoarthritis: Right Lower Extremity Left Lower Extremity History of Rheumatoid Arthritis: Not Applicable 2. Height: 5 ft. 7 in. 170.2 cm. Weight: 165.0 lb. oz. 74.844 kg. Patient's BMI: 25.8 3. Vital Signs: BP: 135/70 Pulse: 63 Resp: 16 Temp: 02 Sat: 95 ECG Mon: 4. Pain Intensity: 4 5. Fall Risk: Dizziness: N Needs help standing or walking: Y Fallen in the last 3 months: N Fall risk comments: 6. Patient on Blood Thinner: Warfarin (Coumadin) 7. History of Hypertension: Y 8. Opioid Therapy greater than 6 weeks: N Opiate Contract Signed: 9. Risk Assessment Tool Provided: 0-LOW 10. Functional Assessment Tool: 59/70 11. Recreational Drug Use: Never Drug Type: Tobacco Use: Never Smoker Tobacco Type: Amount or Packs/day: How Many Years: Alcohol Use: No Frequency: Quant:
--- NOTE | 2018-08-26 08:41 | HPC ---
[facility] [address] [place] [address] PAIN MANAGEMENT CONSULTATION Name: SRIDEVI ANN Room #: REG CLLisa M.R.#: [id number] Admission: 08/24/18 ������������������ Attend Phys: Colin Murillo DO Discharge: ������������������ Date of : 31 Report #: [id number] THIS REPORT FOR: //name// CC: Salima Rocha LASTEX OPERATOR Colin Murillo DATE OF SERVICE: 08/24/2018 CHIEF COMPLAINT: Left knee pain. HISTORY OF PRESENT ILLNESS: As you know, the patient is an 88-year-old male who has had good resolution of symptoms with the right intraarticular knee injection. He returns today to undergo second in the series of left intraarticular knee injections. As you are aware, the patient has had partial total knee replacement affecting the lateral aspect of the knee in the past, though this did not improve the patient's overall pain. He apparently is not a candidate to be seen from an orthopedic standpoint for total knee arthroplasty. He has been referred back to our clinic to trial left intraarticular knee injection and determine if his symptoms would be improved. He has suffered no new injury, no new trauma or any changes in his medical history since our last visit. ALLERGIES: PENICILLIN. CURRENT MEDICATIONS: Aricept, Flomax, hydrocodone, Lidoderm, Synthroid, tramadol, warfarin, Zetia, Lupron, Xgeva, melatonin and Flector patch. SOCIAL HISTORY: The patient denies tobacco, alcohol, IV or illicit drug use. He is retired, retired years ago. He is accompanied by his daughter who is present in room today. IMAGING: No new imaging available. PQRS: The patient has known arthritic changes of the bilateral hips, bilateral knees, bilateral shoulders. No rheumatoid arthritis. He is placing his pain today at 4/10. He is a fall risk, but has not had a fall in the last 3 months. He is on Coumadin for blood thinning capabilities. He is treated for hypertension. He is not on any opioids. He has a low opioid addiction potential. He is placing pain impact score at 59/70 indicating severe interference of daily activities secondary to pain. PHYSICAL EXAMINATION: VITAL SIGNS: Blood pressure 135/70, pulse is 63, respiratory rate 16 and unlabored. The patient is 95% on room air. Height 5 feet 7 inches tall, weight 165 pounds, BMI calculated 25.8. [address] [address] PAIN MANAGEMENT CONSULTATION Name: SRIDEVI ANN Room #: REG CLLisa Moriah#: [id number] Admission: 08/24/18 ������������������ Attend Phys: Colin Murillo DO Discharge: ������������������ Date of : 31 Report #: [id number] GENERAL: Well-developed, well-nourished, well-hydrated 88-year-old male, appearing stated age, placing current pain score at 4/10. HEENT: Normocephalic, atraumatic. EXTREMITIES: Show no clubbing, no cyanosis and no edema. MUSCULOSKELETAL: Palpatory tenderness is again noted over the bilateral knees, well-healed surgical scar over the right knee. Standing from seated position is difficult for the patient typically, but pain is generated with this maneuver. Active and passive range of motion of both knees met with increasing pain. ASSESSMENT: 1. Right knee pain. 2. Left knee pain. 3. Bilateral knee osteoarthritis. 4. Dementia. 5. Chronic anticoagulation. 6. Chronic intractable pain. PLAN: 1. The patient returns today in followup visit indicating excellent benefit when describing his left knee pain. He continues to experience right knee pain. As you are aware, the patient underwent a right partial knee arthroplasty, though this did not provide much in the way of improvement in symptoms. He returns requesting a right intraarticular knee injection in hopes of improving residual pain. He has been advised risks and benefits of the procedure, states understood and wished to proceed. 2. The patient will continue to use the Flector patch for pain control. I have taken the liberty of writing the Flector patch q. 12 hours. I have given the patient #90 patches with 2 refills. This should give the patient approximately 9 months' worth of medication. 3. We will see the patient back in followup visit on an as needed basis for intraarticular knee injections as needed. PROCEDURE NOTE DESCRIPTION OF PROCEDURE: Right intraarticular knee injection under fluoroscopic guidance. After obtaining written consent, the patient was taken back to fluoroscopy suite, placed in a supine position. Image intensifier was then brought into position over the right knee and imaging was obtained. A marker was used to uylia the area of the injection. The knee was prepped and draped in normal sterile fashion utilizing chlorhexidine. A 27-gauge 1-1/4 inch needle was then used to anesthetize skin and subcutaneous tissue over the medial aspect of the right knee. A 25-gauge 2 inch needle was then advanced under fluoroscopic guidance into the [facility] [address] [place] [address] PAIN MANAGEMENT CONSULTATION Name: SRIDEVI ANN Room #: REG CLLisa Major#: [id number] Admission: 08/24/18 ������������������ Attend Phys: Colin Murillo DO Discharge: ������������������ Date of : 31 Report #: [id number] right knee utilizing a medial to lateral approach. Needle was advanced until reaching the knee joint. Needle was advanced under direct visualization within the joint itself. Aspiration noted to be negative for heme. After negative aspiration for heme, 0.5 mL of Omnipaque injected demonstrating an excellent right knee arthrogram. After negative aspiration for heme, 3 mL of a solution containing 1 mL 40 mg per mL, 40 mg total triamcinolone and 2 mL bupivacaine 0.5% injected slowly. Needle retracted longterm, flushed with 1 mL of 1% lidocaine and then removed. Sterile bandage placed over injection site. No new motor deficits present in the lower extremities following procedure. The patient tolerated procedure well, carefully escorted to recovery room in stable condition. No apparent complications. After meeting discharge criteria, the patient discharged to home. ��������������������������������������������� <ELECTRONICALLY SIGNED> ���������������������������������������� By: Colin Murillo DO ��������������������������������������������� 08/26/18 [id number] Colin Murillo DO /nt
== END | disposition home or self-care (01) ==
LOC: PAIN 08-18 07:03
DX: M17.0 Bilateral primary osteoarthritis of knee (principal); G89.29 Other chronic pain; Z88.0 Allergy status to penicillin; Z79.899 Other long term (current) drug therapy; Z79.01 Long term (current) use of anticoagulants

== ENCOUNTER 2018-12-17 07:02 | Inpatient (IN) | payer OTHER ==
[~2018-12-17] VITALS: Ht 170.2 cm; Wt 82.4 kg
[~2018-12-17 07:02] MED LIST changes: +BUTRANS1 EACH TRANSDERM
[2018-12-17 07:04] VITALS: BP 141/75
[2018-12-17 08:09] LABS: ABSOLUTE NEUTROPHILS 5.1 thou/uL (1.4-8.2); BASOPHILS 0.7 % (0.0-2.0); EOSINOPHILS 1.9 % (0.0-3.0); HEMOGLOBIN 13.7 gm/dL (14.0-18.0); MCH 31.8 pg (26.0-34.0); MCHC 34.1 g/dL (28.0-37.0); MCV 93.2 fL (80.0-100.0); MONOCYTES 6.3 % (1.0-8.0); PLATELET COUNT 181 thou/uL (150-400); POLYS 62.1 % (36.0-66.0); RBC 4.29 mil/uL (4.50-6.00); RDW 14.2 % (10.5-14.5); WBC 8.3 thou/uL (4.0-11.0)
[2018-12-17 08:17] LABS: CALCIUM 9.4 mg/dL (8.5-10.1); CREATININE 1.1 mg/dL (0.7-1.3); POTASSIUM 4.4 mmol/L (3.5-5.1)
[2018-12-17 08:21] LABS: APTT 30.3 Seconds (24.5-32.8); INR 1.3; PROTIME 13.4 Seconds (9.3-11.4)
[2018-12-17 09:19] VITALS: BP 124/67
[2018-12-17 10:33] LABS: URINE BILIRUBIN NEGATIVE (Negative); URINE BLOOD NEGATIVE (Negative); URINE COLOR YELLOW; URINE GLUCOSE-RANDOM* NEGATIVE (Negative); URINE KETONES NEGATIVE (Negative); URINE NITRITE-REFLEX NEGATIVE (Negative); URINE PROTEIN (DIPSTICK) NEGATIVE (Negative); URINE SPECIFIC GRAVITY 1.015 (1.005-1.035); URINE UROBILINOGEN 0.2 E.U./dl (0.2-1.0)
[2018-12-17 10:36] LABS: URINE LEUKOCYTES-REFLEX 3+ (Negative)
[2018-12-17 10:37] LABS: URINE CLARITY HAZY
[2018-12-17 10:47] LABS: CASTS None Seen /LPF (None Seen); MUCUS 4-6 Moderate strn/LPF (None Seen); SQUAMOUS >10 Many /LPF (0-3)
[2018-12-17 10:48] LABS: BACTERIA-REFLEX >30 Many /HPF (None Seen); CRYSTALS None Seen /LPF (None Seen); URINE RBC 0-2 Rare /HPF (0-2); URINE WBC-REFLEX >25 Many /HPF (0-5); WBC CLUMPS Occasional (None Seen)
[2018-12-17 13:40] VITALS: BP 117/55
[2018-12-17 14:45] VITALS: BP 139/50
--- NOTE | 2018-12-17 19:21 | NUR ---
ASSUMED CARE OF PATIENT APPROX 1430, VSS, PAIN IN BACK AT 7 BUT STATED EARLIER IN SHIFT HE DOESNT WANT ANYTHING FOR IT. AT SHIFT CHANGE PATIENT THEN STATED HE WANTED SOME TRAMADOL FOR HIS BACK PAIN, DOCTOR NOTIFIED AND IS AWARE PATIENT IS ON UNIT. NO SIGNS OF DISTRESS, DAUGHTER AND AT BEDSIDE. AWAITING ORDERS FROM DOCTOR. PATIENT DID TOLERATE HIS DIET. HE NEEDS HIS FOOD SOFT AND NEEDS ASSISTANCE TO BE FED. WILL CONTINUE TO MONITOR.
[2018-12-17 19:44] VITALS: BP 136/64
--- NOTE | 2018-12-18 03:31 | NUR ---
PATIENT ALERT AND ORIENTED X3-4. PATIENT ARRIVED TO 4W AT APPROX 1400, HOWEVER, NO MEDICATIONS WERE AVAILABLE ON HIS MAR THE AM NURSE WAS UNABLE TO CONTACT DR. SANTANA. AFTER SPEAKING TO THE NIGHT CHARGE NURSE, THIS NURSE CONTACTED THE BUNDLE HELPER (GEOVANI) AND ENTERED MEDICATION NEEDED FOR THE NIGHT FROM PATIENT'S RECONCILIATION SHEET. PATIENT VOIDING PER URINAL AND RESTING QUIETLY. MEDICATED FOR PAIN X1 DURING THE NIGHT AT TIME OF THIS NOTE. WILL MONITOR.
[2018-12-18 05:22] VITALS: BP 137/56
[2018-12-18 08:00] VITALS: BP 154/66
[2018-12-18 15:00] VITALS: BP 119/69
--- NOTE | 2018-12-18 17:21 | NUR ---
PT A&OX2-3, VSS, PAIN IN LEFT HIP MANAGED WITH MORPHINE. PATIENT HAD HIP SURGERY TODAY, DRESSING C/D/I, ICE PACK ON HIP, SCDS PLACED ON PATIENT. NEURO CHECKS WITH VITALS COMPLETED ORDERED. NO SIGNS OF DISTRESS, FAMILY AT BEDSIDE, WILL CONTINUE TO MONITOR.
--- NOTE | 2018-12-18 18:06 | NUR ---
PT A&OX3, VSS, PAIN IN BACK MANAGED WITH TRAMADOL. GUSTAVO GIVE, PATIENT TURNED OFTEN THIS SHIFT, FALL PRECAUTIONS IN PLACE. NO SIGNS OF DISTRESS, WILL CONTINUE TO MONITOR.
[2018-12-18 19:24] VITALS: BP 132/60
--- NOTE | 2018-12-19 03:43 | NUR ---
PATIENT ALERT AND ORIENTED X3. DENIES PAIN. PATIENT SOMETIMES ASKS FOR URINAL AND IS SOMETIMES INCONTINENT. COOPERATIVE WITH CARE. TURNED FREQUENTLY. RESTING QUIETLY. WILL MONITOR.
[2018-12-19 07:43] VITALS: BP 134/56
[2018-12-19 14:34] VITALS: BP 129/61
--- NOTE | 2018-12-19 17:12 | NUR ---
AAOX1 PLEASANT AND COOPERATIVE BUT VERY CONFUSED AND FORGETFUL. INCONTINENT OF URINE. MAX ASSIST TO CHAIR. SAT UP FOR 6 HOURS. FAIR APPETITE FOR MEALS AT APPROX 50%. AT BEDSIDE. COLOR PINK SKIN WARM DRY AND INTACT.
[2018-12-19 20:12] VITALS: BP 125/66
[2018-12-20 05:55] LABS: HEMATOCRIT 41.1 % (42.0-52.0); HEMOGLOBIN 14.2 gm/dL (14.0-18.0); MCH 32.1 pg (26.0-34.0); MCHC 34.5 g/dL (28.0-37.0); RBC 4.42 mil/uL (4.50-6.00); RDW 13.9 % (10.5-14.5); WBC 8.9 thou/uL (4.0-11.0)
[2018-12-20 05:57] LABS: CALCIUM 8.8 mg/dL (8.5-10.1); MAGNESIUM 2.1 mg/dL (1.8-2.4); POTASSIUM 3.9 mmol/L (3.5-5.1)
--- NOTE | 2018-12-20 06:46 | NUR ---
PATIENT ALERT AND ORIENTED X2-3. MEDICATED X2 FOR PAIN. INCONTINENT OF URINE. BEDREST THROUGHOUT THE NIGHT. RESTING QUIETLY.
[2018-12-20 07:32] VITALS: BP 131/64
--- NOTE | 2018-12-20 10:00 | NUR ---
cm visited with pt and daughter simba at bedside. intro to cm, transition on care, [facility] and [facility] " [facility], he [facility] been there [facility] and we like it there"/heather and daughter. pt [place], can hear little better on right side, pleasant and a & o x 3. referral to be sent to [facility], cc requested. pt and family report " [place] level home, 10 steps to upper level, lives with , have not driven since jun 03 2017 that was the hip. cooks, help get dressed and sponge baths. have walker and cane do not use any more. have bsc, cant get into bathroom; to small. 4 falls in past year, last 2 in 10 days [facility] had to get him up"/ag.
--- NOTE | 2018-12-20 12:01 | NUR ---
ASSUMED CARE 0700. PAIN MANAGED WITH MEDICATION. LEFT SIDE WEAKNESS REQUIRES ASSISTANCE WITH MEAL PREP AND ADL'S. CONTINENT TO URINAL WITH INCONTINENCE AT TIME. UNABLE TO PUSH CALL LIGHT. STAFF TO ANTICIPATE NEEDS. FALL PRECAUTIONS IN PLACE. PLANS TO DC TO SKILLED TODAY. CALL LIGHT IN REACH.
--- NOTE | 2018-12-20 12:48 | NUR ---
DIscharge Planning: patient to dc today, sent snf referral to [facility], and notified Daly at facility of incoming referral.
[2018-12-20 14:35] VITALS: BP 149/70
[2018-12-20] MEDS ORDERED: TRAMADOL 50 MG50 MG PO (16:03)
[2018-12-20] MEDS ORDERED: ASPIR 8181 MG PO (16:03)
[2018-12-20] MEDS ORDERED: LEVAQUIN 500 M500 M2 PO (16:03)
== END 2018-12-20 17:48 | DRG 604 ==
LOC: ER 07:02 → 4W 09:48 → EROBS 09:48 → 4W 13:41
PROVIDERS: Emergency Medicine; ADMIT Internal Medicine
DX: S30.0XXA Contusion of lower back and pelvis, initial encounter (principal); G93.41 Metabolic encephalopathy; N39.0 Urinary tract infection, site not specified; M54.9 Dorsalgia, unspecified; R29.6 Repeated falls; C61 Malignant neoplasm of prostate; Z96.642 Presence of left artificial hip joint; I48.0 Paroxysmal atrial fibrillation; T14.8XXA Other injury of unspecified body region, initial encounter; W18.39XA Other fall on same level, initial encounter; B96.20 Unspecified Escherichia coli [E. coli] as the cause of diseases classified elsewhere; N40.0 Benign prostatic hyperplasia without lower urinary tract symptoms; G31.9 Degenerative disease of nervous system, unspecified; R53.81 Other malaise; Z86.73 Personal history of transient ischemic attack (TIA), and cerebral infarction without residual deficits; Z90.49 Acquired absence of other specified parts of digestive tract; Z79.1 Long term (current) use of non-steroidal anti-inflammatories (NSAID); Z79.899 Other long term (current) drug therapy; Z88.0 Allergy status to penicillin; Z79.01 Long term (current) use of anticoagulants; Y93.89 Activity, other specified; Y92.89 Other specified places as the place of occurrence of the external cause; Y99.8 Other external cause status
CPT/HCPCS: 10040